=== PATIENT | female | born 2000 | race Caucasian/White ===

== ENCOUNTER 2018-02-12 23:05 | Emergency (ER) | payer BC | END 2018-02-13 01:36 | disposition home or self-care (01) | LOC: FTE 23:05 | DX: B37.3 Candidiasis of vulva and vagina (principal) | CPT/HCPCS: 99283 ==

== ENCOUNTER 2019-02-18 00:07 | Emergency (ER) | payer BC ==
[2019-02-18] MEDS: ACETAMINOPHEN 325 MG TAB PO (01:52)
[2019-02-18] MEDS: LIDOCAINE 2%/EPI MPF (SDV) 20 ML VIAL INJ (01:57)
== END 2019-02-18 02:09 | disposition home or self-care (01) ==
LOC: FTE 02:09
DX: L02.31 Cutaneous abscess of buttock (principal)
CPT/HCPCS: 10060; 81025; 99283-25